=== PATIENT | female | born 1970 | race Two or more races ===

== ENCOUNTER 2024-04-30 17:55 | Inpatient (IN) | payer OTHER ==
[~2024-04-30] VITALS: Ht 162.6 cm; Wt 187.3 kg
[2024-04-30] MEDS ORDERED: MORPHINE SULFATE INJ 4 MG/ML DISP.SYRIN ONE ×2 (18:47→21:01)
[2024-04-30] MEDS ORDERED: ONDANSETRON HCL/PF 4 MG/2 ML VIAL ONE (18:47)
[2024-04-30] MEDS: ONDANSETRON HCL/PF 4 MG/2 ML VIAL IV ONE (18:52)
[2024-04-30] MEDS: MORPHINE SULFATE INJ 2 MG/ML DISP.SYRIN IV ONE ×2 (18:53→21:04)
[2024-04-30 19:11] LABS: BASOPHILS % (AUTO) 0.1 % (0.0-2.0); EOSINOPHILS % (AUTO) 0.1 % (0.0-6.0); HEMATOCRIT 34 % (33-45); HEMOGLOBIN 10.8 g/dL (11.5-14.8); LYMPHOCYTES # (AUTO) 0.9 K/uL (0.8-4.8); LYMPHOCYTES % (AUTO) 8.2 % (20.0-44.0); MEAN CORPUSCULAR HEMOGLOBIN 28 PG (26.0-33.0); MEAN CORPUSCULAR HGB CONC 32 g/dl (31.0-36.0); MEAN CORPUSCULAR VOLUME 85 fL (82-100); MONOCYTES # (AUTO) 0.5 K/uL (0.1-1.30); MONOCYTES % (AUTO) 4.4 % (2.0-12.0); NEUTROPHILS # (AUTO) 9.3 K/uL (1.8-8.9); NEUTROPHILS % (AUTO) 87.2 % (43.0-81.0); PLATELET COUNT (AUTO) 178 K/uL (150-450); RED BLOOD CELL COUNT(AUTO) 3.94 MIL/uL (4.0-5.2); RED CELL DISTRIBUTION WIDTH 17.6 % (11.5-15.0); WHITE BLOOD COUNT (AUTO) 10.7 K/uL (4.3-11.0)
[2024-04-30 19:17] LABS: CALCIUM, SERUM 8.6 mg/dL (8.5-10.1); CHLORIDE 100 mmol/L (98-107); CREATININE 0.9 mg/dL (0.6-1.3); GLUCOSE 113 mg/dL (74-106); POTASSIUM 4.6 mmol/L (3.5-5.1); SODIUM SERUM 146 mmol/L (136-145); UREA NITROGEN, BLOOD 33 mg/dL (7-18)
[2024-04-30 19:30] LABS: ALANINE AMINOTRANSFERASE 12 U/L (12-78); ALBUMIN 2.7 g/dL (3.4-5.0); ALKALINE PHOSPHATASE 112 U/L (46-116); ASPARTATE AMINOTRANSFERASE 10 U/L (15-37); BILIRUBIN,DIRECT 0.1 mg/dL (0.0-0.2); BILIRUBIN,TOTAL 0.3 mg/dL (0.2-1.0); NT-PRO BNP 5306 pg/mL (0-125); TOTAL PROTEIN, SERUM 7.7 g/dL (6.4-8.2)
[2024-04-30 19:32] LABS: CARBON DIOXIDE 43 mmol/L (21-32); INR 1.08 (0.91-1.10); PROTHROMBIN TIME 11.4 SECS (9.2-11.1)
[2024-04-30 19:57] LABS: ABG BASE EXCESS 17.9 mmol/L (-2.0-3.0); ABG OXYGEN SATURATION 94.6 % (94.0-98.0); ABG PH 7.302 (7.350-7.450); ABG PO2 79.7 mmHg (83.0-108.0); COHb 0.3 % (0.5-1.5); MetHb 0.2 % (0.0-1.5); O2Hb 94.1 % (94.0-97.0); SITE, ABG LEFT RADIAL
[2024-04-30] MEDS ORDERED: FUROSEMIDE 20 MG/2 ML VIAL ONE (20:32)
[2024-04-30] MEDS: FUROSEMIDE 20 MG/2 ML VIAL IV ONE (20:36)
[2024-04-30] MEDS ORDERED: MAGNESIUM HYDROXIDE 30 ML UDC PO PRN (21:30)
[2024-04-30] MEDS ORDERED: ONDANSETRON HCL/PF 4 MG/2 ML VIAL IVP PRN (21:30)
[2024-04-30] MEDS ORDERED: Z GUARD REMEDY 4 OZ OINT TP PRN (21:30)
[2024-04-30] MEDS ORDERED: METH8TAB6 PO (22:53)
[2024-04-30] MEDS ORDERED: SPIR25TA6 PO (22:53)
[2024-04-30] MEDS ORDERED: FERR220S2 PO (22:53)
[2024-04-30] MEDS ORDERED: SEMA1PEN SQ (22:53)
[2024-04-30] MEDS ORDERED: TIOT18CA3 INH (22:53)
[2024-04-30] MEDS ORDERED: LIDO700A30 TP (22:53)
[2024-04-30] MEDS ORDERED: CHOL400T11 PO (22:53)
[2024-04-30] MEDS ORDERED: NICO-627 TP (22:53)
[2024-04-30] MEDS ORDERED: DAPA10TA PO (22:53)
[2024-04-30] MEDS ORDERED: LEVO500T90 PO (22:53)
[2024-04-30] MEDS ORDERED: SENN8.6T19 PO (22:53)
[2024-04-30] MEDS ORDERED: GABA-536 PO (22:53)
[2024-04-30] MEDS ORDERED: MULT-447 PO (22:53)
[2024-04-30] MEDS ORDERED: MELA1TAB47 PO (22:53)
[2024-04-30] MEDS ORDERED: POLY250017 PO (22:53)
[2024-04-30] MEDS ORDERED: IPRA3AMP23 IH (22:53)
[2024-04-30] MEDS ORDERED: DULO60CA45 PO (22:53)
[2024-04-30] MEDS ORDERED: BUME1TAB8 PO (22:53)
[2024-04-30] MEDS ORDERED: ATOR40TA GT (22:53)
[2024-04-30] MEDS ORDERED: FLUT1BLS15 INH (22:53)
[2024-04-30] MEDS ORDERED: POTA20TA83 PO (22:53)
[2024-04-30 23:05] VITALS: BP 113/68; O2SAT 98
[2024-04-30 23:14] VITALS: BP 113/68; TEMP 97.9; O2SAT 98
[2024-04-30] MEDS: ENOXAPARIN SODIUM 40 MG/0.4 ML DISP.SYRIN SQ SCH (23:15)
[2024-04-30] MEDS: CEFTRIAXONE 2 G in IV D5W 100 ML IV SCH (23:16)
[2024-04-30] MEDS ORDERED: DOXYCYCLINE 100 MG VIAL ONE (23:18)
[2024-04-30] MEDS: CEFTRIAXONE 1GM BAG (ER ONLY) 100 ML IV ONE (23:25)
[2024-05-01] VITALS (83 sets, daily range): BP systolic 84–137; BP diastolic 48–101; TEMP 97.9–98.6; O2SAT 82–96
[2024-05-01] MEDS: DOXYCYCLINE 100 MG in IV D5W 100 ML IV SCH (00:19)
[2024-05-01] MEDS ORDERED: ACETAMINOPHEN ES 500 MG TABLET PO ONE (00:30)
[2024-05-01] MEDS: LIDOCAINE 5% (PATCH) 1 EA PATCH TP SCH (00:30)
[2024-05-01] MEDS ORDERED: IPRATROPIUM NEB FS 0.5 MG/2.5 ML AMPUL.NEB NEB PRN (00:30)
[2024-05-01] MEDS ORDERED: ALBUTEROL FS 2.5 MG/0.5 ML VIAL.NEB NEB PRN (00:30)
[2024-05-01] MEDS: KETOROLAC TROMETHAMINE INJ 30 MG/ML VIAL IV ONE (00:36)
[2024-05-01] MEDS: GABAPENTIN 400 MG CAPSULE PO SCH (00:48)
[2024-05-01] MEDS: MAG HYDROX/AL HYDROX/SIMETH 30 ML UDC PO PRN (02:10)
[2024-05-01] MEDS: IPRATROPIUM NEB FS 0.5 MG/2.5 ML AMPUL.NEB IH SCH (02:20)
[2024-05-01] MEDS: ALBUTEROL FS 2.5 MG/0.5 ML VIAL.NEB NEB SCH (02:20)
[2024-05-01] MEDS: NOREPINEPHRINE 8MG/250ML RTU 250 ML IV ONE (04:34)
[2024-05-01] MEDS: NOREPINEPHRINE 8 MG in IV D5W 242 ML IV PRN (04:39)
[2024-05-01 04:58] LABS: ABG BASE EXCESS 15.2 mmol/L (-2.0-3.0); ABG OXYGEN SATURATION 90.2 % (94.0-98.0); ABG PCO2 91.3 mmHg (32.0-45.0); ABG PO2 63.5 mmHg (83.0-108.0); ABG TOTAL HEMOGLOBIN 11.2 G/dL (12.0-16.0); COHb 0.6 % (0.5-1.5); MetHb 0.3 % (0.0-1.5); O2Hb 89.4 % (94.0-97.0); SITE, ABG RIGHT RADIAL
[2024-05-01 05:04] LABS: BASOPHILS % (AUTO) 0.1 % (0.0-2.0); EOSINOPHILS % (AUTO) 0.4 % (0.0-6.0); HEMATOCRIT 32 % (33-45); HEMOGLOBIN 10.2 g/dL (11.5-14.8); LYMPHOCYTES # (AUTO) 1.4 K/uL (0.8-4.8); LYMPHOCYTES % (AUTO) 14.6 % (20.0-44.0); MEAN CORPUSCULAR HEMOGLOBIN 27 PG (26.0-33.0); MEAN CORPUSCULAR HGB CONC 32 g/dl (31.0-36.0); MEAN CORPUSCULAR VOLUME 86 fL (82-100); MONOCYTES # (AUTO) 0.6 K/uL (0.1-1.30); MONOCYTES % (AUTO) 6.6 % (2.0-12.0); NEUTROPHILS # (AUTO) 7.6 K/uL (1.8-8.9); NEUTROPHILS % (AUTO) 78.3 % (43.0-81.0); PLATELET COUNT (AUTO) 156 K/uL (150-450); RED BLOOD CELL COUNT(AUTO) 3.79 MIL/uL (4.0-5.2); RED CELL DISTRIBUTION WIDTH 17.3 % (11.5-15.0); WHITE BLOOD COUNT (AUTO) 9.7 K/uL (4.3-11.0)
[2024-05-01 06:00] LABS: CALCIUM, SERUM 8.4 mg/dL (8.5-10.1); MAGNESIUM 2.2 mg/dL (1.8-2.4); PHOSPHORUS 4.4 mg/dL (2.5-4.9); POTASSIUM 4.6 mmol/L (3.5-5.1)
[2024-05-01] MEDS ORDERED: Medication Not On Formulary EA (Ipratropium/Albuterol Sulfate (Duoneb 2.5-0.5 Mg/3 Ml So IH SCH (06:00)
[2024-05-01] MEDS: PANTOPRAZOLE 40 MG VIAL IV SCH (08:47)
[2024-05-01] MEDS: BUMETANIDE INJ 0.25 MG/ML VIAL IV ONE (08:47)
[2024-05-01] MEDS: FERROUS SULFATE UDC 300 MG/5 ML UDC PO SCH (08:58)
[2024-05-01] MEDS: DAPAGLIFLOZIN PROPANEDIOL 10 MG TABLET PO SCH (08:58)
[2024-05-01] MEDS: SPIRONOLACTONE 25 MG TABLET PO SCH (08:58)
[2024-05-01] MEDS: SENNOSIDES 8.6 MG TABLET PO SCH (08:58)
[2024-05-01] MEDS: POLYETHYLENE GLYCOL 3350 17 GM POWD.PACK PO SCH (08:58)
[2024-05-01] MEDS: FLUTICASONE/VILANTEROL 1 EACH BLST.W.DEV IH SCH (08:58)
[2024-05-01] MEDS: DULOXETINE HCL 30 MG CAPSULE.DR PO SCH (08:58)
[2024-05-01] MEDS: POTASSIUM CHLORIDE 20 MEQ TAB.PRT.SR PO SCH (08:58)
[2024-05-01] MEDS: ACETAMINOPHEN 325 MG TABLET PO PRN (11:56)
[2024-05-01] MEDS: KETOROLAC TROMETHAMINE 15 MG/ML VIAL IV PRN (22:34)
[2024-05-02] VITALS (101 sets, daily range): BP systolic 73–144; BP diastolic 40–130; TEMP 97.5–98.7; O2SAT 79–100
[2024-05-02 04:48] LABS: BASOPHILS % (AUTO) 0.2 % (0.0-2.0); EOSINOPHILS # (AUTO) 0.1 K/uL (0.0-0.7); EOSINOPHILS % (AUTO) 1.2 % (0.0-6.0); HEMATOCRIT 32 % (33-45); HEMOGLOBIN 10.1 g/dL (11.5-14.8); LYMPHOCYTES # (AUTO) 1.9 K/uL (0.8-4.8); LYMPHOCYTES % (AUTO) 21.2 % (20.0-44.0); MEAN CORPUSCULAR HEMOGLOBIN 27 PG (26.0-33.0); MEAN CORPUSCULAR HGB CONC 32 g/dl (31.0-36.0); MEAN CORPUSCULAR VOLUME 85 fL (82-100); MONOCYTES # (AUTO) 0.6 K/uL (0.1-1.30); MONOCYTES % (AUTO) 6.4 % (2.0-12.0); NEUTROPHILS # (AUTO) 6.2 K/uL (1.8-8.9); PLATELET COUNT (AUTO) 155 K/uL (150-450); RED BLOOD CELL COUNT(AUTO) 3.72 MIL/uL (4.0-5.2); RED CELL DISTRIBUTION WIDTH 17.3 % (11.5-15.0); WHITE BLOOD COUNT (AUTO) 8.8 K/uL (4.3-11.0)
[2024-05-02 05:01] LABS: CREATININE 1.2 mg/dL (0.6-1.3); POTASSIUM 4.4 mmol/L (3.5-5.1)
[2024-05-02] MEDS: PANTOPRAZOLE 40 MG TABLET.DR PO SCH (08:34)
[2024-05-02 10:13] LABS: ABG BASE EXCESS 11.2 mmol/L (-2.0-3.0); ABG OXYGEN SATURATION 87.6 % (94.0-98.0); ABG PCO2 81.8 mmHg (32.0-45.0); ABG PH 7.312 (7.350-7.450); ABG PO2 57.1 mmHg (83.0-108.0); ABG TOTAL HEMOGLOBIN 11.9 G/dL (12.0-16.0); COHb 0.8 % (0.5-1.5); O2Hb 86.9 % (94.0-97.0); SITE, ABG RIGHT RADIAL
[2024-05-02 12:03] LABS: SITE, VBG VBG - N/A; VBG BASE EXCESS 12.4 mmol/L (-2.0-3.0); VBG COHb 0.5 % (0.5-1.5); VBG HCO3 41.6 mmol/L (22.0-29.0); VBG MetHb 0.2 % (0.5-1.5); VBG OXYGEN SATURATION 66.5 % (60.0-85.0); VBG PCO2 83.3 mmHg (38.0-54.0); VBG PH 7.316 (7.320-7.430); VBG PO2 36.1 mmHg (23.0-48.0); VBG TOTAL HEMOGLOBIN 11.3 G/dL (12.0-16.0)
[2024-05-02] MEDS: CLOTRIMAZOLE 1% 15 GM TUBE TP SCH (16:13)
[2024-05-02] MEDS: NA PHOS,M-B/NA PHOS,DI-BA 1 EA ENEMA RC ONE (20:59)
[2024-05-02] MEDS: HYDROMORPHONE 1 MG/1 ML DISP.SYRIN IV ONE (22:57)
[2024-05-03] VITALS (52 sets, daily range): BP systolic 80–142; BP diastolic 37–129; TEMP 97.7–98.1; O2SAT 84–98
[2024-05-03 04:57] LABS: BASOPHILS % (AUTO) 0.2 % (0.0-2.0); EOSINOPHILS # (AUTO) 0.1 K/uL (0.0-0.7); EOSINOPHILS % (AUTO) 1.6 % (0.0-6.0); HEMATOCRIT 31 % (33-45); LYMPHOCYTES # (AUTO) 1.5 K/uL (0.8-4.8); LYMPHOCYTES % (AUTO) 17.4 % (20.0-44.0); MEAN CORPUSCULAR HEMOGLOBIN 27 PG (26.0-33.0); MEAN CORPUSCULAR HGB CONC 33 g/dl (31.0-36.0); MEAN CORPUSCULAR VOLUME 84 fL (82-100); MONOCYTES # (AUTO) 0.6 K/uL (0.1-1.30); MONOCYTES % (AUTO) 7.7 % (2.0-12.0); NEUTROPHILS # (AUTO) 6.1 K/uL (1.8-8.9); NEUTROPHILS % (AUTO) 73.1 % (43.0-81.0); PLATELET COUNT (AUTO) 140 K/uL (150-450); RED BLOOD CELL COUNT(AUTO) 3.66 MIL/uL (4.0-5.2); RED CELL DISTRIBUTION WIDTH 17.3 % (11.5-15.0); WHITE BLOOD COUNT (AUTO) 8.4 K/uL (4.3-11.0)
[2024-05-03 05:19] LABS: CREATININE 0.9 mg/dL (0.6-1.3)
[2024-05-03] MEDS: MIDODRINE HCL (5MG) 5 MG TABLET PO SCH (08:49)
[2024-05-04] VITALS (20 sets, daily range): BP systolic 87–112; BP diastolic 46–89; TEMP 97.9–99.2; O2SAT 85–96
[2024-05-04 04:29] LABS: BASOPHILS % (AUTO) 0.1 % (0.0-2.0); EOSINOPHILS # (AUTO) 0.1 K/uL (0.0-0.7); EOSINOPHILS % (AUTO) 1.9 % (0.0-6.0); HEMATOCRIT 28 % (33-45); HEMOGLOBIN 9.2 g/dL (11.5-14.8); LYMPHOCYTES # (AUTO) 1.2 K/uL (0.8-4.8); LYMPHOCYTES % (AUTO) 15.9 % (20.0-44.0); MEAN CORPUSCULAR HEMOGLOBIN 28 PG (26.0-33.0); MEAN CORPUSCULAR HGB CONC 33 g/dl (31.0-36.0); MEAN CORPUSCULAR VOLUME 84 fL (82-100); MONOCYTES # (AUTO) 0.4 K/uL (0.1-1.30); NEUTROPHILS # (AUTO) 5.9 K/uL (1.8-8.9); NEUTROPHILS % (AUTO) 77.1 % (43.0-81.0); PLATELET COUNT (AUTO) 135 K/uL (150-450); RED CELL DISTRIBUTION WIDTH 17.1 % (11.5-15.0); WHITE BLOOD COUNT (AUTO) 7.6 K/uL (4.3-11.0)
[2024-05-04 04:38] LABS: CALCIUM, SERUM 8.6 mg/dL (8.5-10.1); CREATININE 0.8 mg/dL (0.6-1.3); POTASSIUM 4.1 mmol/L (3.5-5.1)
[2024-05-04] MEDS: DOXYCYCLINE HYCLATE (100 MG) 100 MG TABLET PO SCH (08:30)
[2024-05-04] MEDS: MORPHINE SULFATE INJ 4 MG/ML DISP.SYRIN IV PRN (09:24)
[2024-05-04] MEDS: NA PHOS,M-B/NA PHOS,DI-BA 1 EA ENEMA RC PRN (15:02)
[2024-05-05] VITALS (7 sets, daily range): BP systolic 104–110; BP diastolic 47–61; TEMP 97.9–99; O2SAT 90–97
[2024-05-05 08:52] LABS: BASOPHILS % (AUTO) 0.2 % (0.0-2.0); EOSINOPHILS # (AUTO) 0.2 K/uL (0.0-0.7); EOSINOPHILS % (AUTO) 2.4 % (0.0-6.0); HEMATOCRIT 30 % (33-45); HEMOGLOBIN 9.7 g/dL (11.5-14.8); LYMPHOCYTES # (AUTO) 1.3 K/uL (0.8-4.8); LYMPHOCYTES % (AUTO) 17.6 % (20.0-44.0); MEAN CORPUSCULAR HEMOGLOBIN 27 PG (26.0-33.0); MEAN CORPUSCULAR HGB CONC 32 g/dl (31.0-36.0); MEAN CORPUSCULAR VOLUME 84 fL (82-100); MONOCYTES # (AUTO) 0.4 K/uL (0.1-1.30); MONOCYTES % (AUTO) 5.9 % (2.0-12.0); NEUTROPHILS # (AUTO) 5.3 K/uL (1.8-8.9); NEUTROPHILS % (AUTO) 73.9 % (43.0-81.0); PLATELET COUNT (AUTO) 140 K/uL (150-450); RED BLOOD CELL COUNT(AUTO) 3.59 MIL/uL (4.0-5.2); RED CELL DISTRIBUTION WIDTH 17.2 % (11.5-15.0); WHITE BLOOD COUNT (AUTO) 7.2 K/uL (4.3-11.0)
[2024-05-05 09:14] LABS: CALCIUM, SERUM 8.7 mg/dL (8.5-10.1); CREATININE 0.7 mg/dL (0.6-1.3); POTASSIUM 4.4 mmol/L (3.5-5.1)
[2024-05-06] VITALS (8 sets, daily range): BP systolic 95–111; BP diastolic 45–61; TEMP 97.7–98.9; O2SAT 89–92
[2024-05-06] MEDS ORDERED: DOXY100T2 PO (09:48)
[2024-05-06] MEDS ORDERED: HYDROCODONE/APAP 10/325MG TABLET PO PRN (10:00)
[2024-05-06] MEDS: HYDROCODONE/APAP 10/325MG TABLET PO PRN (10:16)
== END 2024-05-06 22:30 | DRG 137 ==
LOC: ER 17:57 → ICU 22:21 → TELE-TD 05-04 17:52 → TELE1 05-05 09:51 → MEDSG1 05-06 13:34
PROVIDERS: ATTEND Internal Medicine
PROC: 5A09557 Assistance with Respiratory Ventilation, Greater than 96 Consecutive Hours, Continuous Positive Airway Pressure (ICD-10-PCS; principal; 2024-04-30)
DX: J15.69 Pneumonia due to other Gram-negative bacteria (principal); J96.02 Acute respiratory failure with hypercapnia; N17.0 Acute kidney failure with tubular necrosis; E44.0 Moderate protein-calorie malnutrition; D62 Acute posthemorrhagic anemia; E66.2 Morbid (severe) obesity with alveolar hypoventilation; E87.1 Hypo-osmolality and hyponatremia; Z68.45 Body mass index [BMI] 70 or greater, adult; I11.0 Hypertensive heart disease with heart failure; I25.10 Atherosclerotic heart disease of native coronary artery without angina pectoris; I50.9 Heart failure, unspecified; I44.7 Left bundle-branch block, unspecified; J96.21 Acute and chronic respiratory failure with hypoxia; J96.22 Acute and chronic respiratory failure with hypercapnia; Z87.891 Personal history of nicotine dependence; Z88.8 Allergy status to other drugs, medicaments and biological substances; Z88.1 Allergy status to other antibiotic agents; E88.09 Other disorders of plasma-protein metabolism, not elsewhere classified; J44.0 Chronic obstructive pulmonary disease with (acute) lower respiratory infection
CPT/HCPCS: 36415; 36600; 71045-TC; 80048-TC; 80061-TC; 80076-TC; 82728-TC; 82803-TC; 83540-TC; 83735-TC; 83880; 84100-TC; 84484-TC; 85025-TC; 85730-TC; 87040-TC; 87081-TC; 93307-TC; 94760-TC; 94761-TC; 94799-TC; 97110-TC; 97530-TC; 97535-TC; 99082-TC; A4223; G0378; J0696; J1171; J1650; J1885; J1940; J2270; J2405; J2470; J3490; J7050; J7060; J7070